=== PATIENT | male | born 1945 | race African-American/Black ===

== ENCOUNTER 2019-09-26 07:21 | Inpatient (IN) | payer MEDICARE ==
[~2019-09-26] VITALS: Ht 172.7 cm; Wt 81.2 kg
--- NOTE | 2019-09-26 08:00 | NUR ---
GPS/RN RECEIVED PT DIRECT ADMIT FROM [facility] ON 5[address] DTS. HX OF DEPRESSION AND SI. PT IS FORMER TIE TAM[facility] AND LIVES AT THE [facility] . ADMITTING ORDERS FROM DR PLATT RECEIVED AND CARRIED OUT, PROPERTY CHECKED FOR CONTRABAND. PT DENIES SI OR HI AT THE TIME OF ASSESSMENT. VSS AMBULATORY NO DISTRESS NOTED. COVID TEST NEGATIVE PER MEDICAL RECORDS. MICHELLE CHANNEL WORKER AWARE OF ADMISSION
[2019-09-26] MEDS ORDERED: MAG HYDROX/AL HYDROX/SIMETH 30 ML UDC PO PRN (08:30)
[2019-09-26] MEDS ORDERED: ACETAMINOPHEN 325 MG TABLET PO PRN (08:30)
[2019-09-26] MEDS ORDERED: MAGNESIUM HYDROXIDE 30 ML UDC PO PRN (08:30)
[2019-09-26] MEDS ORDERED: LORAZEPAM 0.5 MG TABLET PO PRN (08:30)
[2019-09-26] MEDS ORDERED: FINA5TAB11 PO (09:05)
[2019-09-26] MEDS ORDERED: MAGN400T52 PO (09:05)
[2019-09-26] MEDS ORDERED: ESOM40CA52 PO (09:05)
[2019-09-26] MEDS ORDERED: TAMS-12 PO (09:05)
[2019-09-26] MEDS ORDERED: MIRT7.5T10 PO (09:05)
[2019-09-26] MEDS ORDERED: BUPR-51 PO (09:05)
[2019-09-26] MEDS ORDERED: VENL75CA62 PO (09:05)
[2019-09-26] MEDS ORDERED: LEVO50TA8 PO (09:05)
[2019-09-26] MEDS ORDERED: CLON0.5T4 PO (09:05)
[2019-09-26] MEDS: MAGNESIUM OXIDE 400 MG TABLET PO SCH ×2 (10:43→16:35)
[2019-09-26] MEDS: FINASTERIDE (5 MG) 5 MG TABLET PO SCH (10:43)
[2019-09-26] MEDS: LEVOTHYROXINE SODIUM 50 MCG TABLET PO SCH (10:43)
[2019-09-26] MEDS ORDERED: BLOOD SUGAR DIAGNOSTIC 1 EACH STRIP IN ONE (11:30)
[2019-09-26 11:50] LABS: CHOLESTEROL 157 mg/dL (<200); HDL CHOLESTEROL 43 mg/dL (40-60); LDL 97 mg/dL (0-99); TRIGLYCERIDES 109 mg/dL (30-150)
[2019-09-26] MEDS: BUPROPION XL 150 MG TAB.ER.24 PO SCH (12:07)
[2019-09-26] MEDS: PANTOPRAZOLE 40 MG TABLET.DR PO SCH ×2 (12:07→21:39)
[2019-09-26] MEDS: VENLAFAXINE XR 75 MG CAP.SR.24H PO SCH (12:07)
[2019-09-26 16:00] VITALS: BP 136/77
[2019-09-26] MEDS ORDERED: ESOMEPRAZOLE MAGNESIUM PO SCH (16:30)
[2019-09-26 20:20] VITALS: BP 132/67
[2019-09-26] MEDS: TAMSULOSIN 0.4 MG CAP.SR.24H PO SCH (21:39)
[2019-09-26] MEDS: MIRTAZAPINE 15 MG TABLET PO SCH (21:39)
[2019-09-27 07:08] LABS: ALBUMIN 3.2 g/dL (3.4-5.0); BILIRUBIN,TOTAL 0.4 mg/dL (0.2-1.0); CALCIUM, SERUM 8.3 mg/dL (8.5-10.1); CREATININE 0.7 mg/dL (0.6-1.3); MAGNESIUM 2.2 mg/dL (1.8-2.4); POTASSIUM 3.7 mmol/L (3.5-5.1); TOTAL PROTEIN, SERUM 6.5 g/dL (6.4-8.2)
[2019-09-27 07:11] LABS: THYROID STIMULATING HORMONE 3.157 uIU/mL (0.358-3.74)
[2019-09-27] MEDS: LEVOTHYROXINE SODIUM 50 MCG TABLET PO SCH (07:40)
[2019-09-27] MEDS: BUPROPION XL 150 MG TAB.ER.24 PO SCH (07:40)
[2019-09-27] MEDS: MAGNESIUM OXIDE 400 MG TABLET PO SCH ×2 (07:40→16:37)
[2019-09-27] MEDS: PANTOPRAZOLE 40 MG TABLET.DR PO SCH ×2 (07:40→21:15)
[2019-09-27] MEDS: FINASTERIDE (5 MG) 5 MG TABLET PO SCH (07:41)
[2019-09-27 08:00] VITALS: BP 143/92
[2019-09-27] MEDS: VENLAFAXINE XR 75 MG CAP.SR.24H PO SCH (12:08)
[2019-09-27 16:00] VITALS: BP 126/79
[2019-09-27 20:05] VITALS: BP 134/77
[2019-09-27] MEDS: TAMSULOSIN 0.4 MG CAP.SR.24H PO SCH (21:15)
[2019-09-27] MEDS: MIRTAZAPINE 15 MG TABLET PO SCH (21:15)
[2019-09-28 08:00] VITALS: BP 145/81
[2019-09-28] MEDS: FINASTERIDE (5 MG) 5 MG TABLET PO SCH (08:27)
[2019-09-28] MEDS: LEVOTHYROXINE SODIUM 50 MCG TABLET PO SCH (08:27)
[2019-09-28] MEDS: PANTOPRAZOLE 40 MG TABLET.DR PO SCH ×2 (08:27→21:13)
[2019-09-28] MEDS: MAGNESIUM OXIDE 400 MG TABLET PO SCH ×2 (08:27→16:09)
[2019-09-28] MEDS: BUPROPION XL 150 MG TAB.ER.24 PO SCH (08:28)
--- NOTE | 2019-09-28 09:37 | NUR ---
Social Work Family Contact: Patient does not have any family members at this moment.
--- NOTE | 2019-09-28 09:37 | NUR ---
Social Work Initial Discharge Plan: Patient currently resides at [address] [place] [address] ([phone]); with two other priests in the house. Per pt, he does not want to return back there. Patient is unsure to where he wants to go. Patient will either need an Independent Living or SNF. grain ii farmworker will work with the MD to help coordinate proper discharge plan for patient.
--- NOTE | 2019-09-28 11:46 | NUR ---
Social Work Coordination of Care: This publicity writer faxed Shayy from [facility] ([phone]) and sent patient's [facility] psychiatric notes and progress notes to review. Addendum: 10/01/19 at 1442 by DEDE LIMON SW Patient is accepted to facility.
[2019-09-28] MEDS: VENLAFAXINE XR 75 MG CAP.SR.24H PO SCH (12:19)
[2019-09-28 16:00] VITALS: BP 138/71
[2019-09-28 20:06] VITALS: BP 126/69
[2019-09-28] MEDS: TAMSULOSIN 0.4 MG CAP.SR.24H PO SCH (21:14)
[2019-09-28] MEDS: MIRTAZAPINE 15 MG TABLET PO SCH (21:14)
[2019-09-29 08:00] VITALS: BP 144/83
--- NOTE | 2019-09-29 08:00 | NUR ---
RECEIVED PT. IN AM ALERT AND ORIENTED X3.VS STABLE.KEEPS TO SELF IN RM.
[2019-09-29] MEDS: BUPROPION XL 150 MG TAB.ER.24 PO SCH (08:17)
[2019-09-29] MEDS: LEVOTHYROXINE SODIUM 50 MCG TABLET PO SCH (08:17)
[2019-09-29] MEDS: FINASTERIDE (5 MG) 5 MG TABLET PO SCH (08:17)
[2019-09-29] MEDS: PANTOPRAZOLE 40 MG TABLET.DR PO SCH ×2 (08:17→21:32)
[2019-09-29] MEDS: MAGNESIUM OXIDE 400 MG TABLET PO SCH ×2 (08:18→17:22)
--- NOTE | 2019-09-29 12:30 | NUR ---
UA AND URINE CULTURE SENT.
[2019-09-29] MEDS: VENLAFAXINE XR 75 MG CAP.SR.24H PO SCH (13:31)
[2019-09-29 16:00] VITALS: BP 144/65
[2019-09-29 17:30] LABS: APPEARANCE,URINE SL CLOUDY (CLEAR); BILIRUBIN,URINE NEGATIVE (NEGATIVE); BLOOD, URINE NEGATIVE Ery/uL (NEGATIVE); COLOR,URINE YELLOW (YELLOW); KETONES,URINE TRACE (NEGATIVE); LEUKOCYTE ESTERASE ,URINE NEGATIVE (NEGATIVE); NITRITE, URINE NEGATIVE (NEGATIVE); PH,URINE 7.5 (5.0-8.0); PROTEIN,URINE NEGATIVE (NEGATIVE); UGLUCOSE NEGATIVE (NEGATIVE); UROBILINOGEN,URINE 0.2 EU/dL (0.2)
[2019-09-29 17:58] LABS: BACTERIA,URINE Rare /HPF (None Seen); RBC,URINE 0-2 /HPF (0-2); SQUAMOUS EPITHELIAL CELL,UR Rare /HPF (None Seen); WBC,URINE 0-2 /HPF (0-3)
--- NOTE | 2019-09-29 18:38 | NUR ---
MED COMPLIANT.NO COMPLAINTS OFFERED.
[2019-09-29 19:54] VITALS: BP 130/61
[2019-09-29] MEDS: MIRTAZAPINE 15 MG TABLET PO SCH (21:32)
[2019-09-29] MEDS: TAMSULOSIN 0.4 MG CAP.SR.24H PO SCH (21:32)
[2019-09-29] MEDS: TEMAZEPAM 7.5 MG CAPSULE PO PRN (22:37)
[2019-09-30 08:00] VITALS: BP 124/60
[2019-09-30] MEDS: VENLAFAXINE XR 75 MG CAP.SR.24H PO SCH (09:03)
[2019-09-30] MEDS: PANTOPRAZOLE 40 MG TABLET.DR PO SCH ×2 (09:04→21:33)
[2019-09-30] MEDS: FINASTERIDE (5 MG) 5 MG TABLET PO SCH (09:04)
[2019-09-30] MEDS: LEVOTHYROXINE SODIUM 50 MCG TABLET PO SCH (09:04)
[2019-09-30] MEDS: MAGNESIUM OXIDE 400 MG TABLET PO SCH ×2 (09:04→16:45)
--- NOTE | 2019-09-30 10:03 | NUR ---
PIPPA Individual Therapy Note: SW met with patient to provide brief individual counseling. Patient presents with blunted affect and withdrawn mood. Patient shared his concerns about his discharge plan. SW discussed discharge plan with the patient and patient appeared to have a sense of relief once this was discussed. Patient stated that he did not want to return to his [facility]. This lead technical writer assured that he would not have to unless he changed his mind, and provided pt with the information for the SNF the patient is accepted at and will admit upon discharge.
--- NOTE | 2019-09-30 10:21 | NUR ---
worried about destination,post discharge.rn spoke with social welfare clerk regarding discharge.
--- NOTE | 2019-09-30 14:39 | NUR ---
Group Note: SW encouraged the pt to attend group therapy on 09/30/19 on the topic of discharge planning. Pt refused to attend and stated that he wanted to remain sleeping as he was resting post lunch. SW stated that she can do an individual session with him on this topic that would be shorter. Pt stated that he spoke to the other SW earlier in the day and stated that he is "going somewhere in [place]." SW stated that the pt is going to a SNF for safety purposes as was recommended by the MD.
--- NOTE | 2019-09-30 15:15 | NUR ---
still verbalizing concern over placement.soc. worker informed.
[2019-09-30 16:00] VITALS: BP 116/69
[2019-09-30 19:34] VITALS: BP 132/67
[2019-09-30] MEDS: MIRTAZAPINE 15 MG TABLET PO SCH (21:33)
[2019-09-30] MEDS: TAMSULOSIN 0.4 MG CAP.SR.24H PO SCH (21:33)
[2019-09-30] MEDS: TEMAZEPAM 7.5 MG CAPSULE PO PRN (22:11)
[2019-10-01] MEDS: LEVOTHYROXINE SODIUM 50 MCG TABLET PO SCH (07:52)
[2019-10-01 08:17] VITALS: BP_SYST 130; BP_SYST 142; BP_DIAS 66; BP_DIAS 67
[2019-10-01] MEDS: VENLAFAXINE XR 75 MG CAP.SR.24H PO SCH (08:55)
[2019-10-01] MEDS: MAGNESIUM OXIDE 400 MG TABLET PO SCH ×2 (08:55→16:44)
[2019-10-01] MEDS: PANTOPRAZOLE 40 MG TABLET.DR PO SCH ×2 (08:55→21:10)
[2019-10-01] MEDS: FINASTERIDE (5 MG) 5 MG TABLET PO SCH (08:56)
--- NOTE | 2019-10-01 14:08 | NUR ---
GROUP NOTE: Topic: Adapting to our environment. utility worker production provided active listening, motivational interviewing, and reflected patient's thoughts and feelings. Patient shared about about his anxiety about not knowing what his future will look like. Patient shared that he "over thinks a lot". SW acknowledged patient's feeligns and helped patient create a short-term outline of what his near future might look like. Patient affect became brighter and he stated that he feels less anxious about what will happen upon his discharge from the hospital.
--- NOTE | 2019-10-01 14:47 | NUR ---
Coordination of Care: Received a call from patient's psychiatrist, Dr. Wilkes ([phone]) who was requesting the patient to be transferred to a custodial facility in [place]. This speech writer stated that we cannot arrange for a trip as such. This speech writer spoke with the patient regarding this request and patient is aware. However patient stated that he does not want to make such a big move at the moment, and especially from the hospital. Patient is agreeable to going to [facility] upon his discharge and coordinate moving to [place] form there on. This speech writer left a voicemail for Dr. Wilkes to inform him of the patient's request and current wants.
[2019-10-01 16:00] VITALS: BP 139/85
[2019-10-01 20:10] VITALS: BP 121/61
[2019-10-01] MEDS: TAMSULOSIN 0.4 MG CAP.SR.24H PO SCH (21:10)
[2019-10-01] MEDS: MIRTAZAPINE 15 MG TABLET PO SCH (21:10)
[2019-10-02] MEDS: LEVOTHYROXINE SODIUM 50 MCG TABLET PO SCH (07:45)
[2019-10-02 08:00] VITALS: BP 124/75
[2019-10-02] MEDS: VENLAFAXINE XR 75 MG CAP.SR.24H PO SCH (08:17)
[2019-10-02] MEDS: MAGNESIUM OXIDE 400 MG TABLET PO SCH ×2 (08:17→16:32)
[2019-10-02] MEDS: FINASTERIDE (5 MG) 5 MG TABLET PO SCH (08:17)
[2019-10-02] MEDS: PANTOPRAZOLE 40 MG TABLET.DR PO SCH ×3 (08:17→21:22)
--- NOTE | 2019-10-02 15:01 | NUR ---
GROUP NOTE: Topic: Learning coping skills. Patient presented delusional and paranoid. patient stated, "Please tell the police I surrender". community organization worker provided reality reorientation, however patient appeared disorganized and disoriented.
[2019-10-02] MEDS: ARIPIPRAZOLE 2 MG TABLET PO SCH ×2 (15:28→16:32)
[2019-10-02 16:00] VITALS: BP 126/67
--- NOTE | 2019-10-02 19:45 | NUR ---
GPS RN NOTES RECEIVED PATIENT IN BED, AWAKE. PATIENT IS ALERT AND ORIENTED X 3. BREATHING EVEN AND UNLABORED ON ROOM AIR. SHOWS NO SIGNS OF ACUTE RESPIRATORY DISTRESS, NO ACUTE PAIN. PATIENT IS QUITE AND ISOLATIVE. DENIES SI/HI. CALM AND COOPERATIVE WITH MEDICATIONS. SAFETY PRECAUTION IN PLACE. BED IN LOWEST POSITION, LOCKED, AND SIDE RAILS UP. WILL CONTINUE TO MONITOR.
[2019-10-02 21:08] VITALS: BP 126/77
[2019-10-02] MEDS: TAMSULOSIN 0.4 MG CAP.SR.24H PO SCH ×2 (21:22→21:33)
[2019-10-02] MEDS: MIRTAZAPINE 15 MG TABLET PO SCH ×2 (21:22→21:34)
--- NOTE | 2019-10-02 21:47 | NUR ---
GPS RN NOTES OPENED PROTONIX, FLOMAX, REMERON, PT REFUSED TO TAKE MEDICATIONS. WASTED MEDICATIONS IN PROPER CONTAINER.
[2019-10-03] MEDS: LEVOTHYROXINE SODIUM 50 MCG TABLET PO SCH (07:48)
[2019-10-03 08:00] VITALS: BP 116/73
[2019-10-03] MEDS: VENLAFAXINE XR 75 MG CAP.SR.24H PO SCH (08:34)
[2019-10-03] MEDS: ARIPIPRAZOLE 2 MG TABLET PO SCH ×2 (08:34→16:29)
[2019-10-03] MEDS: MAGNESIUM OXIDE 400 MG TABLET PO SCH ×2 (08:34→16:29)
[2019-10-03] MEDS: FINASTERIDE (5 MG) 5 MG TABLET PO SCH (08:34)
[2019-10-03] MEDS: PANTOPRAZOLE 40 MG TABLET.DR PO SCH ×2 (08:34→21:45)
[2019-10-03 16:00] VITALS: BP 159/94
[2019-10-03 20:18] VITALS: BP_SYST 141; BP_SYST 153; BP_DIAS 71; BP_DIAS 89
[2019-10-03] MEDS: MIRTAZAPINE 15 MG TABLET PO SCH (21:45)
[2019-10-03] MEDS: TAMSULOSIN 0.4 MG CAP.SR.24H PO SCH (21:45)
[2019-10-04 08:00] VITALS: BP 133/69
[2019-10-04] MEDS: ARIPIPRAZOLE 2 MG TABLET PO SCH ×2 (08:19→16:58)
[2019-10-04] MEDS: PANTOPRAZOLE 40 MG TABLET.DR PO SCH ×2 (08:19→21:33)
[2019-10-04] MEDS: FINASTERIDE (5 MG) 5 MG TABLET PO SCH (08:19)
[2019-10-04] MEDS: LEVOTHYROXINE SODIUM 50 MCG TABLET PO SCH (08:19)
[2019-10-04] MEDS: VENLAFAXINE XR 75 MG CAP.SR.24H PO SCH (08:19)
[2019-10-04] MEDS: MAGNESIUM OXIDE 400 MG TABLET PO SCH ×2 (08:19→16:58)
--- NOTE | 2019-10-04 09:00 | NUR ---
RN NOTE- PT LAYING IN THE BED,GUARDED,QUIET,CALM NO ACUTE DISTRESS NOTED.DENIES SI/SI AT THIS TIME. COMPLIANT WITH MEDICATIONS. AMBULATORY STEADY GAIT. WILL CONT. MONITORING FOR SAFETY AND BEHAVIOR.
[2019-10-04 15:49] VITALS: BP 111/72
[2019-10-04 19:52] VITALS: BP 128/74
[2019-10-04] MEDS: MIRTAZAPINE 15 MG TABLET PO SCH (21:33)
[2019-10-04] MEDS: TAMSULOSIN 0.4 MG CAP.SR.24H PO SCH (21:33)
[2019-10-05] MEDS: LEVOTHYROXINE SODIUM 50 MCG TABLET PO SCH (07:51)
[2019-10-05 08:00] VITALS: BP 125/66
[2019-10-05] MEDS: VENLAFAXINE XR 75 MG CAP.SR.24H PO SCH ×2 (08:21→13:51)
[2019-10-05] MEDS: MAGNESIUM OXIDE 400 MG TABLET PO SCH ×2 (08:21→16:26)
[2019-10-05] MEDS: PANTOPRAZOLE 40 MG TABLET.DR PO SCH ×2 (08:21→21:03)
[2019-10-05] MEDS: ARIPIPRAZOLE 2 MG TABLET PO SCH ×2 (08:21→16:26)
[2019-10-05] MEDS: FINASTERIDE (5 MG) 5 MG TABLET PO SCH (08:21)
--- NOTE | 2019-10-05 09:00 | NUR ---
RN NOTE- PT SLEEPING EASILY AWAKENED PASSIVE SOFT SPOKEN BARELY AUDIBLE RESPONSES TO [facility] CONTACT MED COMPLIANT PO INTAKE GOOD DENIES SI HI AH VH STATES 'STILL DEPRESSED'
--- NOTE | 2019-10-05 13:55 | NUR ---
PIPPA Discharge Planning: Spoke with Radha, Admin Coordinator ([phone]) at [facility] who is aware of the patient's discharge plan for to their facility.
--- NOTE | 2019-10-05 15:06 | NUR ---
Group Note: SW invited patient to participate in group therapy to discuss the topic of Problem Solving. Patient presents with disorganized thought process and appears very anxious and fixated on where he will be discharged and too and how much it will cost. This chief underwriter redirected the patient's focus and assured him that the placement is at no cost to him and is covered through insurance. Patient has difficulty accepting the answer and lord snot engage in further conversation.
[2019-10-05 16:00] VITALS: BP 118/81
[2019-10-05 19:54] VITALS: BP 126/73
[2019-10-05] MEDS: TAMSULOSIN 0.4 MG CAP.SR.24H PO SCH (21:03)
[2019-10-05] MEDS: MIRTAZAPINE 15 MG TABLET PO SCH (21:03)
[2019-10-06] MEDS: LEVOTHYROXINE SODIUM 50 MCG TABLET PO SCH (07:56)
[2019-10-06 08:00] VITALS: BP_SYST 117; BP_SYST 125; BP_DIAS 68; BP_DIAS 70
[2019-10-06] MEDS: ARIPIPRAZOLE 2 MG TABLET PO SCH ×2 (08:00→16:29)
[2019-10-06] MEDS: VENLAFAXINE XR 75 MG CAP.SR.24H PO SCH ×2 (08:00→12:00)
[2019-10-06] MEDS: MAGNESIUM OXIDE 400 MG TABLET PO SCH ×2 (08:00→16:29)
[2019-10-06] MEDS: FINASTERIDE (5 MG) 5 MG TABLET PO SCH (08:00)
[2019-10-06] MEDS: PANTOPRAZOLE 40 MG TABLET.DR PO SCH ×2 (08:00→20:32)
--- NOTE | 2019-10-06 15:47 | NUR ---
Group Note: SW encouraged pt to attend group therapy on 10/06/19 on the topic of discharge planning. Pt appeared to be asleep and stated that he did not want to participate.
[2019-10-06 16:00] VITALS: BP 123/75
[2019-10-06 20:03] VITALS: BP 132/85
[2019-10-06] MEDS: MIRTAZAPINE 15 MG TABLET PO SCH (21:24)
[2019-10-06] MEDS: TAMSULOSIN 0.4 MG CAP.SR.24H PO SCH (21:24)
[2019-10-07 07:35] LABS: BASOPHILS # (AUTO) 0.1 /CMM (0.0-0.2); BASOPHILS % (AUTO) 1.1 % (0.0-2.0); HEMATOCRIT 47 % (39-51); HEMOGLOBIN 15.7 g/dL (13.5-17.5); LYMPHOCYTES # (AUTO) 1.6 /CMM (0.8-4.8); LYMPHOCYTES % (AUTO) 30.8 % (20.0-44.0); MEAN CORPUSCULAR HGB CONC 33 g/dl (31.0-36.0); MEAN CORPUSCULAR VOLUME 89 fL (80-96); MONOCYTES # (AUTO) 0.6 /CMM (0.1-1.30); MONOCYTES % (AUTO) 12.1 % (2.0-12.0); NEUTROPHILS # (AUTO) 2.8 /CMM (1.8-8.9); PLATELET COUNT (AUTO) 246 /CMM (150-450); WHITE BLOOD COUNT (AUTO) 5.1 K/uL (4.3-11.0)
[2019-10-07 07:56] LABS: CALCIUM, SERUM 8.5 mg/dL (8.5-10.1); CREATININE 0.7 mg/dL (0.6-1.3); MAGNESIUM 2.1 mg/dL (1.8-2.4); PHOSPHORUS 3.7 mg/dL (2.5-4.9)
[2019-10-07 08:00] VITALS: BP 111/72
[2019-10-07] MEDS: VENLAFAXINE XR 75 MG CAP.SR.24H PO SCH ×2 (08:26→13:07)
[2019-10-07] MEDS: MAGNESIUM OXIDE 400 MG TABLET PO SCH ×2 (08:26→16:48)
[2019-10-07] MEDS: FINASTERIDE (5 MG) 5 MG TABLET PO SCH (08:26)
[2019-10-07] MEDS: PANTOPRAZOLE 40 MG TABLET.DR PO SCH ×2 (08:27→21:19)
[2019-10-07] MEDS: ARIPIPRAZOLE 2 MG TABLET PO SCH (08:27)
[2019-10-07] MEDS: LEVOTHYROXINE SODIUM 50 MCG TABLET PO SCH (08:27)
--- NOTE | 2019-10-07 11:21 | NUR ---
Group Note: SW encouraged pt to participate in group on the topic of dealing with anxiety. Patient was asleep at that time and did not participate.
--- NOTE | 2019-10-07 12:35 | NUR ---
RN-CO: PER DR PLATT "HOLD DISCHARGE FOR TOMORROW. PATIENT STATED " I AM STILL DEPRESSED AND THINK OD DYING." HOWEVER HE DENIED SUICIDAL PLAN.
--- NOTE | 2019-10-07 14:58 | NUR ---
RN-CO: NOTIFIED MEDIA SERVICES DIRECTOR THAT PATIENT'S DISCHARGE FOR TOMORROW IS HOLD PER DR PLATT. EYAL STILL VERBALIZING HOPELESSNESS.
[2019-10-07 16:00] VITALS: BP 142/85
[2019-10-07] MEDS: ARIPIPRAZOLE 5 MG TABLET PO SCH (16:48)
[2019-10-07 19:29] VITALS: BP 110/59
[2019-10-07] MEDS: TAMSULOSIN 0.4 MG CAP.SR.24H PO SCH (21:19)
[2019-10-08 08:00] VITALS: BP 130/78
[2019-10-08] MEDS: ARIPIPRAZOLE 5 MG TABLET PO SCH ×2 (08:35→16:10)
[2019-10-08] MEDS: LEVOTHYROXINE SODIUM 50 MCG TABLET PO SCH (08:35)
[2019-10-08] MEDS: MAGNESIUM OXIDE 400 MG TABLET PO SCH ×2 (08:35→16:10)
[2019-10-08] MEDS: FINASTERIDE (5 MG) 5 MG TABLET PO SCH (08:35)
[2019-10-08] MEDS: PANTOPRAZOLE 40 MG TABLET.DR PO SCH ×2 (08:35→21:36)
[2019-10-08] MEDS: VENLAFAXINE XR 75 MG CAP.SR.24H PO SCH (12:13)
[2019-10-08 16:00] VITALS: BP 119/75
[2019-10-08] MEDS: BENZTROPINE MESYLATE (1 MG) 1 MG TABLET PO SCH (19:50)
[2019-10-08 20:10] VITALS: BP 152/85
[2019-10-08] MEDS: TAMSULOSIN 0.4 MG CAP.SR.24H PO SCH (21:36)
[2019-10-09] MEDS: LEVOTHYROXINE SODIUM 50 MCG TABLET PO SCH (07:07)
[2019-10-09] MEDS: ARIPIPRAZOLE 5 MG TABLET PO SCH ×3 (07:46→16:32)
[2019-10-09] MEDS: MAGNESIUM OXIDE 400 MG TABLET PO SCH ×2 (07:47→16:32)
[2019-10-09] MEDS: BENZTROPINE MESYLATE (1 MG) 1 MG TABLET PO SCH ×2 (07:47→16:32)
[2019-10-09] MEDS: PANTOPRAZOLE 40 MG TABLET.DR PO SCH ×2 (07:47→21:15)
[2019-10-09] MEDS: FINASTERIDE (5 MG) 5 MG TABLET PO SCH (07:47)
[2019-10-09 08:00] VITALS: BP 160/82
[2019-10-09] MEDS: VENLAFAXINE XR 75 MG CAP.SR.24H PO SCH (13:06)
--- NOTE | 2019-10-09 14:00 | NUR ---
LEGAL GUARDIAN: PIPPA received a call from pts legal guardian Father Chris Houston ([phone]) [facility] [address] He states that he is currently working with the [facility] to get pt placed at a senior care psychiatric facility in [place] and wishes for pt to return to the [facility] care. He states that pt is currently under the care of psychiatrist Dr. Hans Wilkes ([phone]) and he will be making a follow up appointment for pt and also states pt has a therapist whom pt sees weekly. PIPPA informed him that pt will be discharged on Saturday10/13/19 and Father Rosemarie stated that he will be picking pt up at 11:00am. Father Rosemarie will fax SW follow up appointments and name and contact information for psychiatrist, therapist, and commercial crabber.
--- NOTE | 2019-10-09 14:21 | NUR ---
INDIVIDUAL INTERVENTION: PIPPA met with pt at bedside to discuss his discharge plan. PIPPA informed him that this freelance copywriter received a call from pts legal guardian Father Chris Houston requesting pt be discharged back to the [facility]. PIPPA informed him that his legal guardian Father Chris Houston and the [facility] are currently working on a intermission coordinator plan for pt so he can receive the psychiatric care he needs. PIPPA informed him that he will be discharged on Saturday10/13/19 and that he will be picked up by legal guardian Father Chris Houston at 11:00am. Pt agreed with discharge plan.
--- NOTE | 2019-10-09 14:38 | NUR ---
PIPPA COORDINATION OF CARE: PIPPA contacted Psychiatrist Dr. Maicol Wilkes Address: [address] [facility] [address], [place] [address] to schedule a follow up appointment. PIPPA left a voicemail for callback. PIPPA also contacted Commercial Litigation Attorney Dr. Cesar Robison Address: [address] , [place] [address] to schedule a follow up appointment. PIPPA was unable to schedule a follow up appointment due to the doctors office being closed due to MD being on vacation until October 18. Per recording appointments can only be made after 10/19/19. PIPPA contacted pts therapist Cyndy [address] [facility] [address] and left a voicemail to schedule a follow up appointment.
--- NOTE | 2019-10-09 15:31 | NUR ---
PIPPA COORDINATION OF CARE: SW received a call from Psychiatrist Dr. Maicol Wilkes Address: [address] [place] [address], [place] [address] stating that he will be following up with pt on Saturday10/14/19 at 2:15pm.
[2019-10-09 16:00] VITALS: BP 139/97
--- NOTE | 2019-10-09 16:06 | NUR ---
PIPPA COORDINATION OF CARE: PIPPA received a call from pts therapist Cyndy Brumfield [address] [facility] [address] scheduling a follow up appointment for Saturday10/13/19 at 2:00pm. PIPPA also provided her with a list of medications.
[2019-10-09 19:41] VITALS: BP 116/63
[2019-10-09] MEDS: DONEPEZIL 5 MG TABLET PO SCH (21:15)
[2019-10-09] MEDS: TAMSULOSIN 0.4 MG CAP.SR.24H PO SCH (21:15)
[2019-10-09] MEDS ORDERED: ARIPIPRAZOLE 5 MG TABLET PO SCH (22:00)
[2019-10-10 07:00] LABS: CALCIUM, SERUM 8.7 mg/dL (8.5-10.1); CREATININE 0.8 mg/dL (0.6-1.3); MAGNESIUM 2.1 mg/dL (1.8-2.4); PHOSPHORUS 4.2 mg/dL (2.5-4.9); POTASSIUM 4.3 mmol/L (3.5-5.1)
[2019-10-10 08:00] VITALS: BP 140/68
[2019-10-10] MEDS: MAGNESIUM OXIDE 400 MG TABLET PO SCH ×2 (08:30→17:09)
[2019-10-10] MEDS: LEVOTHYROXINE SODIUM 50 MCG TABLET PO SCH (08:30)
[2019-10-10] MEDS: PANTOPRAZOLE 40 MG TABLET.DR PO SCH ×2 (08:30→21:19)
[2019-10-10] MEDS: ARIPIPRAZOLE 5 MG TABLET PO SCH ×3 (08:30→21:20)
[2019-10-10] MEDS: FINASTERIDE (5 MG) 5 MG TABLET PO SCH (08:30)
[2019-10-10] MEDS: BENZTROPINE MESYLATE (1 MG) 1 MG TABLET PO SCH ×2 (08:31→17:09)
[2019-10-10 11:13] LABS: THYROID STIMULATING HORMONE 0.014 uIU/mL (0.358-3.74); URIC ACID 0.2 mg/dL (2.6-7.2)
[2019-10-10] MEDS: VENLAFAXINE XR 75 MG CAP.SR.24H PO SCH (12:59)
[2019-10-10 16:00] VITALS: BP_SYST 126; BP_SYST 129; BP_DIAS 84
[2019-10-10 20:24] VITALS: BP 131/72
[2019-10-10] MEDS: DONEPEZIL 5 MG TABLET PO SCH (21:19)
[2019-10-10] MEDS: TAMSULOSIN 0.4 MG CAP.SR.24H PO SCH (21:20)
--- NOTE | 2019-10-10 22:31 | NUR ---
NURSES NOTES: CHECKERING MACHINE ADJUSTER INFORMED MICHELL MA NP FOR [facility] REGARDING PATIENT'S SODIUM LEVEL -[phone]. NO FURTHER ORDERS GIVEN THIS TIME. WILL CONTINUE TO MONITOR THE PATIENT.
[2019-10-11 08:00] VITALS: BP 115/89
[2019-10-11] MEDS: LEVOTHYROXINE SODIUM 50 MCG TABLET PO SCH (08:31)
[2019-10-11] MEDS: MAGNESIUM OXIDE 400 MG TABLET PO SCH ×2 (08:31→16:31)
[2019-10-11] MEDS: BENZTROPINE MESYLATE (1 MG) 1 MG TABLET PO SCH ×2 (08:31→16:31)
[2019-10-11] MEDS: FINASTERIDE (5 MG) 5 MG TABLET PO SCH (08:31)
[2019-10-11] MEDS: ARIPIPRAZOLE 5 MG TABLET PO SCH ×3 (08:31→21:30)
[2019-10-11] MEDS: PANTOPRAZOLE 40 MG TABLET.DR PO SCH ×2 (08:46→21:30)
[2019-10-11] MEDS: VENLAFAXINE XR 75 MG CAP.SR.24H PO SCH (11:55)
[2019-10-11 15:51] VITALS: BP 133/80
[2019-10-11 20:00] VITALS: BP 118/74
[2019-10-11] MEDS: DONEPEZIL 5 MG TABLET PO SCH (21:30)
[2019-10-11] MEDS: TAMSULOSIN 0.4 MG CAP.SR.24H PO SCH (21:30)
--- NOTE | 2019-10-12 07:00 | NUR ---
GPS RN OPENING NOTES RECEIVED PT. RESTING HIS BED AT THIS TIME, DEPRESSED, PT ORIENTED TO OWN ABILITY. GUARDED,ISOLATIVE, CALM COOPERATIVE AT THIS TIME, ENCOURAGED PT. TO VERBALIZED ANY FEELING , PT ABLE TO MAKE NEEDS KNOWN. ALL NEEDS ATTENDED ANTICIPATED PER ORDER, MED COMPLIANT. PT DENIES SI HI AH VH AT THIS TIME. SAFETY MAINTAIN AT ALL TIMES. BED IN LOWEST LOCKED POSITION, SIDE RAILS UPX2, CALL LIGHT WITHIN REACH. WILL CONTINUE TO MONITOR Q15M, PRN AND PER PROTOCOL FOR SAFETY AND BEHAVIOR.
[2019-10-12 08:00] VITALS: BP 136/86
[2019-10-12] MEDS: LEVOTHYROXINE SODIUM 50 MCG TABLET PO SCH (08:46)
[2019-10-12] MEDS: ARIPIPRAZOLE 5 MG TABLET PO SCH ×3 (08:47→21:24)
[2019-10-12] MEDS: BENZTROPINE MESYLATE (1 MG) 1 MG TABLET PO SCH ×2 (09:41→16:50)
[2019-10-12] MEDS: FINASTERIDE (5 MG) 5 MG TABLET PO SCH (09:42)
[2019-10-12] MEDS: MAGNESIUM OXIDE 400 MG TABLET PO SCH ×2 (09:42→16:50)
[2019-10-12] MEDS: PANTOPRAZOLE 40 MG TABLET.DR PO SCH ×2 (09:43→21:24)
[2019-10-12] MEDS: VENLAFAXINE XR 75 MG CAP.SR.24H PO SCH (12:45)
--- NOTE | 2019-10-12 15:50 | NUR ---
LEGAL GUARDIAN: SW received a call from pts legal guardian Father Chris Houston ([phone]) confirming pts discharge for tomorrow at 11:00am.
[2019-10-12 16:00] VITALS: BP 156/84
--- NOTE | 2019-10-12 19:02 | NUR ---
GPS RN CLOSING NOTES PT AWAKE IN BED AT THIS TIME. PT REMAINED STABLE THROUGHOUT SHIFT. ALL CARE, NEEDS, TREATMENT AND MEDICATIONS ADMINISTERED ANTICIPATED PER ORDER. PT KEPT CLEAN AND DRY. SAFETY MAINTAIN AT ALL TIMES. BED IN LOWEST LOCKED POSITION, SIDE RAILS UPX2, CALL LIGHT WITHIN REACH. WILL CONTINUE TO MONITOR Q15M, PRN AND PER PROTOCOL FOR SAFETY AND BEHAVIOR Addendum: 10/12/19 at 1907 by SALLIE REY RN GPS RN CLOSING NOTES PT AWAKE IN BED AT THIS TIME. PT REMAINED STABLE THROUGHOUT SHIFT. ALL CARE, NEEDS, TREATMENT AND MEDICATIONS ADMINISTERED ANTICIPATED PER ORDER. PT KEPT CLEAN AND DRY. SAFETY MAINTAIN AT ALL TIMES. BED IN LOWEST LOCKED POSITION, SIDE RAILS UPX2, CALL LIGHT WITHIN REACH. WILL ENDORSE TO SAFETY NET MAKER NURSE FOR JACKIE
[2019-10-12 19:35] VITALS: BP 140/86
[2019-10-12] MEDS: TAMSULOSIN 0.4 MG CAP.SR.24H PO SCH (21:24)
[2019-10-12] MEDS: DONEPEZIL 5 MG TABLET PO SCH (21:24)
[2019-10-13 08:00] VITALS: BP 106/54
[2019-10-13] MEDS: PANTOPRAZOLE 40 MG TABLET.DR PO SCH (08:23)
[2019-10-13] MEDS: MAGNESIUM OXIDE 400 MG TABLET PO SCH (08:23)
[2019-10-13] MEDS: ARIPIPRAZOLE 5 MG TABLET PO SCH (08:23)
[2019-10-13] MEDS: LEVOTHYROXINE SODIUM 50 MCG TABLET PO SCH (08:23)
[2019-10-13] MEDS: BENZTROPINE MESYLATE (1 MG) 1 MG TABLET PO SCH (08:23)
[2019-10-13] MEDS: FINASTERIDE (5 MG) 5 MG TABLET PO SCH (08:27)
--- NOTE | 2019-10-13 10:50 | NUR ---
Given discharge instruction include miner pick prescription medications/side effects. Does no appears depress, SI/HI, in medically stable condition.
--- NOTE | 2019-10-13 10:53 | NUR ---
DISCHARGE NOTE: Pt will be discharged at 11:00am via private vehicle home [facility] [address] [facility] [address]. Pts legal guardian Father Chris Houston ([phone]) will be picking pt up and transporting home. Pts mood is anxious with congruent affect. Pt denied visual/auditory hallucinations and denied suicidal/homicidal ideation. Pt will follow up with Psychiatrist: Dr. Maicol Wilkes Address: [address] [facility] [facility] [address], [place] [address] on Saturday10/14/19 at 2:15pm. PIPPA also contacted Fast Food Fry Cook Dr. Cesar Robison Address: [address], [place] [address] to schedule a follow up appointment. PIPPA was unable to schedule a follow up appointment due to the doctors office being closed due to MD being on vacation until October 18. Per recording appointments can only be made after 10/19/19. PIPPA also scheduled an appointment with pts therapist Cyndy Brumfield [address] [facility] [address] scheduling a follow up appointment for Saturday10/13/19 at 2:00pm. The multidisciplinary exit care form was done, printed, signed, and given to the patient.
== END 2019-10-13 11:00 | disposition home or self-care (01) | DRG 885 ==
LOC: GPS 07:26
PROVIDERS: ADMIT Psychiatry & Neurology Psychosomatic Medicine; ATTEND Registered Nurse
DX: F33.3 Major depressive disorder, recurrent, severe with psychotic symptoms (principal); R45.851 Suicidal ideations; E44.1 Mild protein-calorie malnutrition; E22.2 Syndrome of inappropriate secretion of antidiuretic hormone; E66.9 Obesity, unspecified; E03.9 Hypothyroidism, unspecified; E78.5 Hyperlipidemia, unspecified; E83.42 Hypomagnesemia; K21.9 Gastro-esophageal reflux disease without esophagitis; Z85.46 Personal history of malignant neoplasm of prostate; F41.9 Anxiety disorder, unspecified; F02.80 Dementia in other diseases classified elsewhere, unspecified severity, without behavioral disturbance, psychotic disturbance, mood disturbance, and anxiety; G20 Parkinson's disease; Z73.6 Limitation of activities due to disability; I10 Essential (primary) hypertension; N40.0 Benign prostatic hyperplasia without lower urinary tract symptoms; Z68.27 Body mass index [BMI] 27.0-27.9, adult; Z91.81 History of falling
CPT/HCPCS: 36415; 80048-TC; 80053-TC; 80061-TC; 81000-TC; 82962-TC; 83735-TC; 84100-TC; 84443-TC; 84550-TC; 85025-TC; 87081-TC; 87086-TC